=== PATIENT | male | born 1940 | race African-American/Black ===

== ENCOUNTER 2021-04-26 13:42 | Emergency (ER) | payer OTHER ==
[~2021-04-26] VITALS: Ht 170.2 cm; Wt 72.6 kg
[2021-04-26] MEDS ORDERED: VALSARTAN40 MG (14:07)
[2021-04-26] MEDS ORDERED: CRESTOR20 MG (14:07)
[2021-04-26] MEDS ORDERED: ECOTRIN81 MG (14:08)
== END 2021-04-26 22:30 | disposition home or self-care (01) ==
LOC: ER 13:42
DX: K52.9 Noninfective gastroenteritis and colitis, unspecified (principal); R10.32 Left lower quadrant pain

== ENCOUNTER 2021-07-25 07:30 | Inpatient (IN) | payer OTHER ==
[~2021-07-25] VITALS: Ht 170.2 cm; Wt 69.9 kg
[~2021-07-25 07:30] MED LIST: CRESTOR20 MG; ECOTRIN81 MG; VALSARTAN40 MG
[2021-07-25] MEDS ORDERED: DIOVAN320 MG PO (08:57)
[2021-07-30] MEDS ORDERED: CLOPIDOGREL BIS75 MG (16:09)
[2021-07-30] MEDS ORDERED: VALSARTAN-HCTZ1 EAC4 (16:09)
[2021-07-30] MEDS ORDERED: OMEGA-3 ACID ETH1 GM (16:09)
[2021-08-02] MEDS ORDERED: LOVENOX40 MG/0.4 SUBCUTANEO (12:47)
[2021-08-02] MEDS ORDERED: KETO10TA2 PO (12:47)
[2021-08-02] MEDS ORDERED: INTESTINEX680 M1 PO (12:47)
== END 2021-08-02 14:47 | disposition home or self-care (01) | DRG 330 ==
LOC: SURG 07-30 07:30 → O/R 07-30 08:57 → SURG 07-30 17:12
PROVIDERS: ADMIT Colon & Rectal Surgery; ATTEND Colon & Rectal Surgery
PROC: 0DBP4ZZ Excision of Rectum, Percutaneous Endoscopic Approach (ICD-10-PCS; 2021-07-30)
PROC: 4A12X4Z Monitoring of Cardiac Electrical Activity, External Approach (ICD-10-PCS; 2021-07-30)
PROC: 0DTN4ZZ Resection of Sigmoid Colon, Percutaneous Endoscopic Approach (ICD-10-PCS; principal; 2021-07-30 18:00)
DX: K57.32 Diverticulitis of large intestine without perforation or abscess without bleeding (principal); K92.1 Melena; I10 Essential (primary) hypertension; I25.10 Atherosclerotic heart disease of native coronary artery without angina pectoris

== ENCOUNTER 2022-03-11 05:20 | Day surgery (SDC) | payer OTHER ==
[~2022-03-11] VITALS: Ht 167.6 cm; Wt 68.9 kg
[~2022-03-11 05:20] MED LIST changes: +CLOPIDOGREL BIS75 MG; +DIOVAN320 MG PO; +INTESTINEX680 M1 PO; +KETO10TA2 PO; +LOVENOX40 MG/0.4 SUBCUTANEO; +OMEGA-3 ACID ETH1 GM; +VALSARTAN-HCTZ1 EAC4
[2022-03-11] MEDS ORDERED: NEURONTIN600 M1 PO (10:18)
[2022-03-11] MEDS ORDERED: POLY119PG PO (10:18)
[2022-03-11] MEDS ORDERED: PERCOCET 5-3251 EACH PO (10:18)
== END 2022-03-11 12:25 | disposition home or self-care (01) ==
LOC: CIR.AMB 05:20
PROVIDERS: ATTEND Surgery
DX: K40.90 Unilateral inguinal hernia, without obstruction or gangrene, not specified as recurrent (principal); Z20.822 Contact with and (suspected) exposure to COVID-19; Z88.0 Allergy status to penicillin; Z88.8 Allergy status to other drugs, medicaments and biological substances; I10 Essential (primary) hypertension; I25.10 Atherosclerotic heart disease of native coronary artery without angina pectoris; Z95.5 Presence of coronary angioplasty implant and graft; N40.0 Benign prostatic hyperplasia without lower urinary tract symptoms; E78.5 Hyperlipidemia, unspecified

== ENCOUNTER 2022-03-18 11:38 | Emergency (ER) | payer OTHER ==
[~2022-03-18] VITALS: Ht 170.2 cm; Wt 69.9 kg
[~2022-03-18 11:38] MED LIST changes: +NEURONTIN600 M1 PO; +PERCOCET 5-3251 EACH PO; +POLY119PG PO
== END 2022-03-18 14:43 | disposition home or self-care (01) ==
LOC: ER 11:38
DX: L76.34 Postprocedural seroma of skin and subcutaneous tissue following other procedure (principal); I10 Essential (primary) hypertension; Z88.0 Allergy status to penicillin; Z88.8 Allergy status to other drugs, medicaments and biological substances

== ENCOUNTER 2023-01-13 05:47 | Day surgery (SDC) | payer OTHER ==
[~2023-01-13] VITALS: Ht 170.2 cm; Wt 69.4 kg
[~2023-01-13 05:47] MED LIST changes: +CRESTOR20 MG PO; +DIOVAN HCT 1601 EACH PO; +FINASTERIDE5 MG PO; +MAXIMUM D3325 MCG PO; +SINGULAIR10 MG PO; +SYMBICORT 16010.2 GM IH
[2023-01-13] MEDS ORDERED: NEURONTIN300 MG PO (09:37)
[2023-01-13] MEDS ORDERED: PERCOCET 5-3251 EACH PO (09:37)
[2023-01-13] MEDS ORDERED: POLY119PG PO (09:37)
== END 2023-01-13 16:15 | disposition home or self-care (01) ==
LOC: CIR.AMB 05:47
PROVIDERS: ATTEND Surgery
DX: K40.90 Unilateral inguinal hernia, without obstruction or gangrene, not specified as recurrent (principal); D17.6 Benign lipomatous neoplasm of spermatic cord; Z20.822 Contact with and (suspected) exposure to COVID-19; I10 Essential (primary) hypertension; Z88.0 Allergy status to penicillin; Z88.8 Allergy status to other drugs, medicaments and biological substances
CPT/HCPCS: 49507; C1781